=== PATIENT | male | born 1970 | race African-American/Black ===

== ENCOUNTER 2019-08-25 15:14 | Emergency (ER) | payer OTHER, SELFPAY ==
[2019-08-25 15:51] VITALS: BP 165/86; PULSE 80; RESP 18; TEMP 36.7; O2SAT 99
--- NOTE | 2019-08-25 16:10 | ED.FEVER ---
HPI - Fever General Chief Complaint: Fever Stated Complaint: Fever Time Seen by Provider: 08/25/19 16:10 Source: patient and RN notes reviewed Mode of arrival: ambulatory Limitations: no limitations History of Present Illness HPI Narrative: This is a 49 years old male presented office for an evaluation of fever. About three days ago, he developed a fever of 100.5F at work with head congestion and again another fever on Thursday night; but he did not have any other symptoms include sore throat, cough, shortness of breathe or loose sense of smell/taste. Denies close contact or exposure to COVID patient that he is aware of. He is feeling fine however his employer asked for a work note before he can return back to work. Related Data Home Medications Medication Instructions Recorded Confirmed carvedilol 08/25/19 hydrochlorothiazide 08/25/19 lisinopril 08/25/19 Allergies Allergy/AdvReac Type Severity Reaction Status Date / Time No Known Allergies Allergy Verified 08/25/19 16:19 Review of Systems Review of Systems: Narrative: CONSTITUTIONAL: Report fever; but not the last two days ENT: Denies rhinorrhea, congestion, sore throat, otalgia. CARDIOVASCULAR: Denies chest pain RESPIRATORY: Denies dyspnea, cough GASTROINTESTINAL: Denies abdominal pain, nausea, vomiting GENITOURINARY: Denies urinary symptoms SKIN: Denies rash MUSCULOSKELETAL: Denies acute back pain NEUROLOGIC: Denies lightheaded PMFSH Past Medical History Medical History (Updated 08/25/19 @ 18:15 by KESHAV Don) Diabetes mellitus, type II HTN (hypertension) Social History Social History (Updated 08/25/19 @ 18:15 by KESHAV Don) Smoking status: Never smoker Gender identity (if verbalized by the patient): Male Comments At time of signature, I agree with nursing past medical, surgical, social and family history. There is no relevant family history pertinent to the presenting complaint. Exam Narrative: Exam Narrative: GENERAL: This is a well-nourished, well-developed patient, in no apparent distress. EYES: Sclera clear/white. Vision is grossly intact. EARS: External ears normal, auditory canals clear and without drainage, TMs normal without perforation. Hearing grossly intact. NOSE: External nose normal with no obvious nasal discharge, nares without redness, no rhinorrhea. THROAT: Mucous membranes moist, posterior pharynx clear. NECK: Neck supple, non-tender without lymphadenopathy, masses or thyromegaly. CARDIOVASCULAR: Regular rate and rhythm without murmurs, gallops, or rubs. RESPIRATORY: Clear to auscultation. Breath sounds equal bilaterally. No wheezes, rales, or rhonchi. GASTROINTESTINAL: Abdomen soft, non-tender, nondistended. Bowel sounds are active. No guarding. SKIN: warm, intact with no suspicious lesions or rash, good texture and turgor. NEURO: awake, alert, and oriented to person, place and time. There were no obvious focal neurologic abnormalities. Steady gait [place] Coma Scale Eye Opening: Spontaneous 4 Bull Coma Scale Motor: Obeys Commands 6 Bull Coma Scale Verbal: Oriented 5 Course Vital Signs Vital signs: Vital Signs Temperature 98.0 F 08/25/19 15:51 Pulse Rate 80 08/25/19 15:51 Respiratory Rate 18 08/25/19 15:51 Blood Pressure 165/86 H 08/25/19 15:51 Pulse Oximetry 99 08/25/19 15:51 Temperature 98.0 F 08/25/19 15:51 Pulse Rate 80 08/25/19 15:51 Respiratory Rate 18 08/25/19 15:51 Blood Pressure 165/86 H 08/25/19 15:51 Pulse Oximetry 99 08/25/19 15:51 MDM - Fever MDM Narrative Medical decision making narrative: Elevated BP noted: I recommend the patient call the primary care provider this week to arrange follow-up for his elevated blood pressure within 2week. Discharge instructions reviewed with patient, as well as provided in writing per nursing staff. The instructions also include specific and strict return/GO TO THE ER as well as f/u informa
== END 2019-08-25 16:30 | disposition home or self-care (01) ==
PROVIDERS: Emergency Provider Nurse Practitioner
DX: R50.9 Fever, unspecified (principal); E11.9 Type 2 diabetes mellitus without complications; I10 Essential (primary) hypertension
CPT/HCPCS: 99201; G0463